=== PATIENT | female | born 1985 ===

== ENCOUNTER 2020-04-04 09:48 | Inpatient (IN) | payer OTHER, SELFPAY ==
[2020-04-04] MEDS ORDERED: LACTATED RINGERS 2,000 ML ONE (13:21)
[2020-04-04] MEDS ORDERED: AMPICILLIN/NS 2 GM/100 ML 2 GM/100 ML BAG IV ONE (13:22)
[2020-04-04] MEDS ORDERED: LIDOCAINE (2%) 20 MG/1 ML VIAL 20 ML MDV INFILTRATI SCH (13:30)
[2020-04-04] MEDS ORDERED: AMPICILLIN/NS 2 GM/100 ML 2 GM/100 ML BAG IV SCH (13:30)
[2020-04-04 13:57] LABS: Hematocrit 39.7 % (30.3-42.9); Hemoglobin 13.9 gm/dl (10.1-14.3); Mean Corpuscular HGB Conc 35 % (30-34); Mean Corpuscular Volume 93 fl (79-97); Platelet Count 190 K/mm3 (140-440); Red Blood Count 4.26 M/mm3 (3.65-5.03); Red Cell Distribution Width 17.4 % (13.2-15.2)
[2020-04-04] MEDS ORDERED: ePHEDrine SULFATE 50 MG/1 ML INJ IV PRN (14:00)
[2020-04-04] MEDS ORDERED: LACTATED RINGERS 1,000 ML IV SCH (14:00)
[2020-04-04] MEDS ORDERED: OXYTOCIN DRIP 30 UNITS/500 ML BAG IV SCH ×2 (14:00→18:00)
[2020-04-04] MEDS ORDERED: TERBUTALINE 1 MG/1 ML INJ SUB-Q PRN (14:00)
[2020-04-04] MEDS ORDERED: MINERAL OIL 30 ML ORAL LIQD PO PRN (14:00)
[2020-04-04] MEDS: AMPICILLIN/NS 1 GM/50 ML 1 GM/50 ML BAG IV SCH ×2 (18:00→22:04)
[2020-04-04] MEDS: fentaNYL 100 MCG/2 ML INJ IV PRN (22:01)
[2020-04-05] MEDS: fentaNYL 100 MCG/2 ML INJ IV PRN (00:22)
--- NOTE | 2020-04-05 00:47 | History and Physical Report ---
History of Present Illness Date of examination: 04/05/20 Date of admission: 04/04/20 09:48 Chief complaint: IOL History of present illness: 35 yo, @ 41.4 wks, initiated care with Iris Childress at 15.6 wks gestation. Her has been complicated by AMA, varicose veins and anemia. She reports to [facility] on 04/04/2020 for IOL secondary to post-date . She reports +FM. Denies any VB or LOF. Labs: A+, antibody negative; rubella immune; RPR negative; HBsAg negative; HIV negative; PAP smear negative; GC/Chlamydia negative; AFP negative; 1 hr gtt - 92; GBS unknown. Past History Past Medical History: no pertinent history Past Surgical History: no surgical history Family/Genetic History: none Social history: single, full code. denies: smoking, alcohol abuse, prescription drug abuse, IV drug use - Obstetrical History Expected Date of Delivery: 03/25/20 Actual Gestation: 41 Week(s) 4 Day(s) : 4 Para: 3 Hx # Term Pregnancies: 3 Number of Pregnancies: 0 Spontaneous Abortions: 0 Induced : 0 Number of Living Children: 3 #1 Gender: Female year: , Method of Delivery: Vaginal Complications: none #2 Infant Gender: Female year: 2,007 Method of Delivery: Vaginal Complications: none #3 Infant Gender: Female year: 2,016 Method of Delivery: Vaginal Complications: none Medications and Allergies Allergies Allergy/AdvReac Type Severity Reaction Status Date / Time No Known Allergies Allergy Unverified 04/04/20 12:21 Home Medications Medication Instructions Recorded Confirmed Last Taken Type No Known Home Medications [No 04/04/20 04/04/20 Unknown History Reported Home Medications] Active Meds: Active Medications Ephedrine Sulfate (Ephedrine Sulfate) 10 mg IV Q2M PRN PRN Reason: Hypotension Fentanyl (Sublimaze) 100 mcg IV Q2H PRN PRN Reason: Pain,Severe (7-10) LABOR PAIN Last Admin: 04/05/20 00:22 Dose: 100 mcg Documented by: Lactated Ringer's (Lactated Ringers) 1,000 mls @ 125 mls/hr IV DIRECT SOFIA Last Admin: 04/04/20 13:12 Dose: 125 mls/hr Documented by: Oxytocin/Sodium Chloride (Pitocin/Ns 30 Unit/500ml) 30 units in 500 mls @ 40 mls/hr IV TITR SOFIA; Protocol Ampicillin Sodium (Ampicillin/Ns 1 Gm/50 Ml) 1 gm in 50 mls @ 100 mls/hr IV Q4H SOFIA; Protocol Last Admin: 04/04/20 22:04 Dose: 100 mls/hr Documented by: Oxytocin/Sodium Chloride (Pitocin/Ns 30 Unit/500ml) 30 units in 500 mls @ 2 mls/hr IV TITR SOFIA; Protocol Last Titration: 04/04/20 21:00 Dose: 10 ml/hr, 10 mls/hr Documented by: Lidocaine (Xylocaine 2%) 20 ml INFILTRATI ONCE SOFIA Stop: 04/05/20 13:29 Mineral Oil (Mineral Oil) 30 ml PO QHS PRN PRN Reason: Constipation Terbutaline Sulfate (Brethine) 0.25 mg SUB-Q ONCE PRN PRN Reason: Hyperstimulation/Hypertonicity Review of Systems All systems: negative - Vital Signs Vital signs: Vital Signs Pulse Pulse Ox 82 97 04/04/20 10:29 04/04/20 10:29 Temp Pulse Resp BP Pulse Ox 97.3 F L 83 20 100/51 92 04/04/20 19:05 04/05/20 00:39 04/05/20 00:22 04/05/20 00:36 04/05/20 00:39 - Physical Exam Breasts: Positive: normal Cardiovascular: Regular rate Lungs: Positive: Normal air movement Abdomen: Positive: other (gravid) Uterus: Positive: enlarged (S=D) - Obstetrical FHR: category 1 Uterine Contraction Monitor Mode: External Cervical Dilatation: 8 (vertex) Cervical Effacement Percentage: 90 (Pitocin @ 5mu/min) station: -1 Uterine Contraction Frequency (min): 2 Uterine Contraction Pattern: Regular Uterine Contraction Intensity: Moderate Results Result Diagrams: 04/04/20 12:00 Abnormal lab results 04/04/20 Range/Units 12:00 MCH 33 H (28-32) pg MCHC 35 H (30-34) % RDW 17.4 H (13.2-15.2) % All other labs normal. Assessment and Plan - Patient Problems (1) Encounter for induction of labor Current Visit: Yes Status: Acute Plan to address problem: Continue routine labor orders AROM @ 0056, clear fluids Pain meds as desired per orders Anticipate (2) Advanced maternal age (AMA) in Current Visit: Yes Status: Acute
[2020-04-05] MEDS: AMPICILLIN/NS 1 GM/50 ML 1 GM/50 ML BAG IV SCH (02:30)
[2020-04-05] MEDS ORDERED: METHYLERGONOVINE MALEATE 0.2 MG/ML VIAL IM ONE ×2 (04:14→04:27)
[2020-04-05] MEDS ORDERED: LANOLIN/ZINC/DIMETHICONE (LANSINOH) 7 GM TP PRN (04:28)
[2020-04-05] MEDS ORDERED: PROMETHAZINE 25 MG TAB PO PRN (04:28)
[2020-04-05] MEDS ORDERED: MAGNESIUM HYDROXIDE (MOM) ORAL LIQD UDC PO PRN (04:28)
[2020-04-05] MEDS ORDERED: diphenhydrAMINE 25 MG CAP PO PRN (04:28)
[2020-04-05] MEDS ORDERED: oxyCODONE /ACETAMINOPHEN 5-325MG TAB PO PRN (04:28)
[2020-04-05] MEDS ORDERED: ONDANSETRON 4 MG/2 ML INJ IV PRN (04:28)
[2020-04-05] MEDS ORDERED: WITCH HAZEL/ GLYCERIN PAD TP PRN (04:28)
--- NOTE | 2020-04-05 04:47 | Procedure Note ---
OB Delivery Note - Delivery Date of Delivery: 04/05/20 (0401) Surgeon: PEYTON FAY (CNM) Estimated blood loss: 300cc - Vaginal Delivery presentation: vertex Delivery position: OA (CHACORTA) Intrapartum events: shoulder dystocia (30 seconds, released using Brian and corkscrew manuevers) Delivery induction: oxytocin Delivery augmentation: rupture of membranes (AROM @ 0200) Delivery monitor: external FHT, external uterine Route of delivery: Delivery placenta: spontaneous (0404, dorantes) Delivery cord: 3 umbilical vessels Episiotomy: none Delivery laceration: none Anesthesia: none Delivery comments: Pt complete and pushing. Head delivered followed by shoulder dystocia that was released using McRobert and corkcrew manuevers after 30 seconds body delivered. Viable, stunned, quiet male infant placed directly to maternal abdomen and manual stimulation was initiated by KEL team nurse. Cord double clamped and cut by myself and was immediately handed over to KEL team nurse for evaluation. Placenta spontaneously delivered, dorantes, disposed per hospital policy. Uterus firm @ U-2. Methergin 0.2mg IM given x 1 dose for bleeding prophylaxis. Perineum intact. Mother safe, stable and left in care of RN. given back to mom after evaluation by KEL team nurse. - A at 1 minute: 7 at 5 minutes: 9 Gender: Male (Weight: 4414 gms (9lbs 12ozs) 22 inches)
[2020-04-05] MEDS: IBUPROFEN 600 MG TAB PO SCH ×3 (09:47→23:14)
[2020-04-05] MEDS: PRENATAL VIT27-FE FUMARATE-FOLIC ACID VIT TAB PO SCH (09:47)
[2020-04-05 19:22] LABS: Hematocrit 32.9 % (30.3-42.9); Hemoglobin 11.2 gm/dl (10.1-14.3)
[2020-04-06] MEDS: IBUPROFEN 600 MG TAB PO SCH ×2 (04:43→12:00)
--- NOTE | 2020-04-06 09:56 | Progress Note ---
Assessment and Plan A: s/p p: Cont monitoring D/C home tomm if stable - Patient Problems (1) (normal spontaneous vaginal delivery) Current Visit: Yes Status: Acute Subjective - Subjective Date of service: 04/06/20 Principal diagnosis: Patient reports: appetite normal, voiding normally, pain well controlled, ambulating normally [place]: doing well, bottle feeding Objective - Vital Signs Latest vital signs: Vital Signs Temp Pulse Resp BP BP Pulse Ox 04/06/20 08:48 98.0 F 89 18 99/65 98 04/06/20 00:30 97.9 F 93 H 18 96/48 95 04/05/20 16:44 98.6 F 86 20 96/50 04/05/20 12:00 98.2 F 89 20 97/47 Intake and Output 04/05/20 04/06/20 04/06/20 22:59 06:59 14:59 Intake Total 360 240 360 Output Total 900 Balance -540 240 360 Intake: Oral 360 240 360 Output: Urine 900 Void 900 Other: Total, Intake Amount 240 120 360 Total, Output Amount 900 # Voids Void 1 1 1 - Exam Breasts: Present: normal Abdomen: Present: normal appearance, soft, normal bowel sounds Vulva: both: normal Uterus: Present: normal, firm, fundal height below umbilicus Extremities: Present: normal
[2020-04-06] MEDS: PRENATAL VIT27-FE FUMARATE-FOLIC ACID VIT TAB PO SCH (10:07)
--- NOTE | 2020-04-06 10:44 | Discharge Summary ---
Providers - Providers Date of Admission: 04/04/20 09:48 Date of discharge: 04/06/20 Attending physician: ALEC HAIR Primary care physician: SANDHYA STRAUSS MD Hospitalization Reason for admission: induction of labor Delivery: Episiotomy: none Laceration: none Other procedures: none complications: none Discharge diagnosis: IUP at term delivered [place] baby: male Hospital course: Admitted for an IOL r/t postdates. Pt had a with an uneventful pp stay. See H&P, delivery summary, and pp notes Condition at discharge: Stable Disposition: DC-01 TO HOME OR SELFCARE - Discharge Diagnoses (1) (normal spontaneous vaginal delivery) Status: Acute Plan - Provider Discharge Summary Additional instructions: [] Smoking cessation referral if applicable(refer to patient education folder for contact #) [] Refer to [facility] Booklet Call your doctor immediately for: * Fever > 100.5 * Heavy vaginal bleeding ( >1 pad per hour) * Severe persistent headache * Shortness of breath * Reddened, hot, painful area to leg or breast * Drainage or odor from incision. * Keep incision clean and dry at all times and follow doctor's instructions regarding bathing/showering - Follow up plan Follow up: PRIMARY CARE, [Primary Care Provider] - 7 Days
[2020-04-06 17:47] VITALS: BP 107/62
== END 2020-04-06 18:15 | disposition home or self-care (01) | DRG 807 ==
LOC: LD 09:48 → OB 04-05 06:11
PROVIDERS: ADMIT Obstetrics & Gynecology; ATTEND Obstetrics & Gynecology
PROC: 10E0XZZ Delivery of Products of Conception, External Approach (ICD-10-PCS; principal; 2020-04-05)
PROC: 10907ZC Drainage of Amniotic Fluid, Therapeutic from Products of Conception, Via Natural or Artificial Opening (ICD-10-PCS; 2020-04-05)
PROC: 3E033VJ Introduction of Other Hormone into Peripheral Vein, Percutaneous Approach (ICD-10-PCS; 2020-04-05)
DX: O48.0 Post-term pregnancy (principal); Z37.0 Single live birth; O66.0 Obstructed labor due to shoulder dystocia; O99.02 Anemia complicating childbirth; O09.523 Supervision of elderly multigravida, third trimester; Z3A.41 41 weeks gestation of pregnancy
CPT/HCPCS: 36415; 59025; 85014; 85018; 85027; 86592; 86850; 86900; 86901; 96360; 96361; 96365; 96366; 96374; 96376; G0378; A6250; J0290; J2210; J2590; J3010; J7120